=== PATIENT | female | born 1990 | race Caucasian/White ===

== ENCOUNTER → 2017-07-02 | Outpatient (CLI) | payer BC ==
[~2017-07-02] MED LIST: CLARITIN10 M3 PO; LEVAQUIN750 MG PO; VENTOLIN HFA18 GM IH
== END | disposition home or self-care (01) ==
LOC: CDC 09:20
DX: O24.919 Unspecified diabetes mellitus in pregnancy, unspecified trimester (principal); I49.8 Other specified cardiac arrhythmias
CPT/HCPCS: 93000

== ENCOUNTER 2017-09-21 15:33 | Outpatient (CLI) | payer BC ==
[~2017-09-21] VITALS: Ht 162.6 cm; Wt 74.8 kg
[2017-09-21 15:47] VITALS: BP 109/58
[2017-09-21 17:05] VITALS: BP 115/59
[2017-09-21 18:27] VITALS: BP 122/57
[2017-09-21 19:53] VITALS: BP 113/58
== END 2017-09-21 21:12 | disposition home or self-care (01) ==
LOC: LDRP-OP → 2WEST 15:34 → LDRP-OP 11-30 15:56
PROVIDERS: Obstetrics & Gynecology
DX: O35.8XX0 Maternal care for other (suspected) fetal abnormality and damage, not applicable or unspecified (principal); O24.414 Gestational diabetes mellitus in pregnancy, insulin controlled; O99.511 Diseases of the respiratory system complicating pregnancy, first trimester; J45.909 Unspecified asthma, uncomplicated; Z3A.34 34 weeks gestation of pregnancy
CPT/HCPCS: 59025; 76818; 82948; G0378; J1815; J7030

== ENCOUNTER 2017-09-26 10:19 | Emergency (ER) | payer BC ==
[~2017-09-26] VITALS: Ht 162.6 cm; Wt 72.1 kg
[2017-09-26 11:25] LABS: HEMATOCRIT 37.4 % (36.0-46.0); HEMOGLOBIN 12.4 G/DL (11.9-15.5); MCH 29.5 PG (29.0-34.0); MCHC 33.2 G/DL (30.0-36.0); MCV 88.8 FL (83-99); NRBC (%) 0.2 /100 WBC (0-0); PLATELET COUNT 277 K/uL (156-360); RBC DIS.WIDTH-CV 13.4 % (11.8-14.6); RBC DIS.WIDTH-SD 43.8 % (39-53); RED BLOOD COUNT 4.21 M/uL (3.80-5.20); WHITE BLOOD COUNT 9.6 K/uL (4.1-10.2)
[2017-09-26 11:29] LABS: CHLORIDE 108 mEq/L (99-109); POTASSIUM 3.6 mEq/L (3.7-5.4); SODIUM 137 mEq/L (136-147)
[2017-09-26 11:31] LABS: GLUCOSE 111 mg/dL (70-99)
[2017-09-26 11:35] LABS: CREATININE 0.7 mg/dL (0.6-1.3); GFR ESTIMATE (CALCULATED) > 59 mL/min/; UREA NITROGEN (BUN) 19 mg/dL (9-23)
[2017-09-26] MEDS ORDERED: ZOFRAN4 MG PO (12:13)
[2017-09-26 12:30] VITALS: BP 107/52
== END 2017-09-26 13:00 | disposition home or self-care (01) ==
LOC: EME 10:19
PROVIDERS: Emergency Medicine
DX: O21.2 Late vomiting of pregnancy (principal); R19.7 Diarrhea, unspecified; O24.419 Gestational diabetes mellitus in pregnancy, unspecified control; Z3A.34 34 weeks gestation of pregnancy; J45.909 Unspecified asthma, uncomplicated
CPT/HCPCS: 80048; 82948; 85027; 99281; 99284; J2405; J7120

== ENCOUNTER 2017-10-23 08:02 | Inpatient (IN) | payer BC ==
[~2017-10-23] VITALS: Ht 162.6 cm; Wt 74.0 kg
[2017-10-23] VITALS (16 sets, daily range): BP systolic 100–143; BP diastolic 56–79
[~2017-10-23 08:02] MED LIST changes: +ZOFRAN4 MG PO
[2017-10-23] MEDS ORDERED: HUMULIN 70100 UNIT/2 SC ×2 (08:31→08:32)
[2017-10-23] MEDS ORDERED: HUMULIN R100 UNITS/ SC ×3 (08:33→08:37)
[2017-10-23] MEDS ORDERED: QVAR 80 MCG IN7.3 GM IH (08:37)
[2017-10-23] MEDS ORDERED: SINGULAIR10 MG PO (08:37)
[2017-10-23 09:45] LABS: BASOPHIL (%) 0.1 % (0-1); EOSINOPHIL COUNT 0.1 K/uL (0-0.3); HEMATOCRIT 33.5 % (36.0-46.0); HEMOGLOBIN 11.1 G/DL (11.9-15.5); IMMATURE GRANULOCYTE (%) 0.5 % (0.0-0.7); LYMPHOCYTE COUNT 1.1 K/uL (1.0-2.8); MCH 28.5 PG (29.0-34.0); MCHC 33.1 G/DL (30.0-36.0); MCV 85.9 FL (83-99); MONOCYTE (%) 6.5 % (3-12); MONOCYTE COUNT 0.5 K/uL (0-0.8); NEUTROPHIL (%) 77.9 % (45-76); NEUTROPHIL COUNT 6.3 K/uL (1.8-6.4); PLATELET COUNT 260 K/uL (156-360); RBC DIS.WIDTH-SD 43.3 % (39-53); WHITE BLOOD COUNT 8.1 K/uL (4.1-10.2)
[2017-10-24] VITALS (16 sets, daily range): BP systolic 100–147; BP diastolic 56–78
[2017-10-25 06:57] LABS: BASOPHIL (%) 0.1 % (0-1); EOSINOPHIL (%) 0.2 % (0-5); HEMATOCRIT 26.3 % (36.0-46.0); HEMOGLOBIN 8.8 G/DL (11.9-15.5); IMMATURE GRANULOCYTE (%) 0.7 % (0.0-0.7); LYMPHOCYTE (%) 8.5 % (15-42); MCH 28.3 PG (29.0-34.0); MCHC 33.5 G/DL (30.0-36.0); MCV 84.6 FL (83-99); MONOCYTE (%) 5.2 % (3-12); MONOCYTE COUNT 1.2 K/uL (0-0.8); NEUTROPHIL (%) 85.3 % (45-76); NEUTROPHIL COUNT 19.7 K/uL (1.8-6.4); PLATELET COUNT 227 K/uL (156-360); RBC DIS.WIDTH-CV 13.9 % (11.8-14.6); RBC DIS.WIDTH-SD 43.4 % (39-53); RED BLOOD COUNT 3.11 M/uL (3.80-5.20)
[2017-10-25 07:29] VITALS: BP 104/55
[2017-10-25 15:09] VITALS: BP 106/65
[2017-10-25 19:34] VITALS: BP 123/72
[2017-10-26 12:59] LABS: BASOPHIL (%) 0.2 % (0-1); EOSINOPHIL COUNT 0.2 K/uL (0-0.3); HEMATOCRIT 30.7 % (36.0-46.0); HEMOGLOBIN 9.9 G/DL (11.9-15.5); IMMATURE GRANULOCYTE (%) 0.7 % (0.0-0.7); LYMPHOCYTE (%) 10.6 % (15-42); LYMPHOCYTE COUNT 1.9 K/uL (1.0-2.8); MCH 27.7 PG (29.0-34.0); MCHC 32.2 G/DL (30.0-36.0); MCV 85.8 FL (83-99); MONOCYTE (%) 4.2 % (3-12); MONOCYTE COUNT 0.8 K/uL (0-0.8); NEUTROPHIL (%) 83.3 % (45-76); NEUTROPHIL COUNT 14.9 K/uL (1.8-6.4); RBC DIS.WIDTH-CV 14.1 % (11.8-14.6); RBC DIS.WIDTH-SD 43.8 % (39-53); RED BLOOD COUNT 3.58 M/uL (3.80-5.20); WHITE BLOOD COUNT 17.8 K/uL (4.1-10.2)
[2017-10-26 13:03] LABS: PLATELET COUNT 331 K/uL (156-360)
[2017-10-26] MEDS ORDERED: METFORMIN HCL500 MG PO (16:02)
== END 2017-10-26 18:30 | disposition home or self-care (01) | DRG 775 ==
LOC: LDRP-OP 08:02 → 2WEST 08:03 → LDRP-OP 10:39 → 2WEST 10-24 07:28 → LDRP-OP 11-30 21:48
PROVIDERS: Advanced Practice Midwife; Obstetrics & Gynecology
DX: O24.424 Gestational diabetes mellitus in childbirth, insulin controlled (principal); O41.1230 Chorioamnionitis, third trimester, not applicable or unspecified; O76 Abnormality in fetal heart rate and rhythm complicating labor and delivery; O71.4 Obstetric high vaginal laceration alone; Z3A.39 39 weeks gestation of pregnancy; Z37.0 Single live birth; Z79.4 Long term (current) use of insulin
CPT/HCPCS: 82948; 85025; 88307; G0378; J0595; J1815; J7120